=== PATIENT | female | born 2000 | race Caucasian/White ===

== ENCOUNTER 2020-02-11 10:28 | Outpatient (CLI) | payer OTHER ==
--- NOTE | 2020-02-11 11:01 | Non Stress Test Report ---
Non Stress Test Datetime Report Generated by CPN: 02/11/2020 11:01 DEMOGRAPHIC EGA NST: 40.1 VITAL SIGNS Temperature - NST: 98.5 Pulse - NST: 93 RESP - NST: 18 NBPSYS NST: 130 NBPDIA NST: 77 MONITORING Monitor Explained: Monitor Explained; Test Explained; Patient Verbalized Understanding Time on Monitor: 02/11/2020 10:40 Time off Monitor: 02/11/2020 11:00 NST Duration: 20 NST INTERVENTIONS NST Interventions: PO Hydration Physician Notified NST: P Boudreaux CNM BABY A: [id number] BABY A Movement : Present Contraction Frequency : 0 FHR Baseline : 140 Accelerations : 15X15 Decelerations : None Variability : Moderate 6-25bpm NST Review: Meets Criteria for Reactive NST NST Review and Verified By : Ramya Camp RNC NST Results: Reactive NST REPORT Report Trigger: Send Report
== END 2020-02-11 11:06 | disposition home or self-care (01) ==
LOC: LC 10:28
PROVIDERS: ATTEND Obstetrics & Gynecology Gynecology
DX: O48.0 Post-term pregnancy (principal); Z3A.40 40 weeks gestation of pregnancy
CPT/HCPCS: 59025

== ENCOUNTER 2020-02-13 15:55 | Inpatient (IN) | payer OTHER ==
[2020-02-13 17:23] LABS: APPEARANCE,URINE SLIGHTLY-CLOUDY; BILIRUBIN,URINE NEGATIVE (NEGATIVE); COLOR,URINE YELLOW; GLUCOSE, URINE NEGATIVE (NEGATIVE); KETONES,URINE NEGATIVE (NEGATIVE); LEUKOCYTE ESTERASE,URINE NEGATIVE (NEGATIVE); NITRITE,URINE NEGATIVE (NEGATIVE); PROTEIN,URINE 100 mg/dL (NEGATIVE); UROBILINOGEN,URINE NEGATIVE mg/dL (<2.0)
[2020-02-13 17:38] LABS: URINE AMPHETAMINES SCREEN NEGATIVE; URINE BARBITURATES SCREEN NEGATIVE; URINE BENZODIAZEPINES SCREEN NEGATIVE; URINE COCAINE SCREEN NEGATIVE; URINE MARIJUANA (THC) SCREEN NEGATIVE; URINE METHADONE SCREEN NEGATIVE; URINE PHENCYCLIDINE SCREEN NEGATIVE
[2020-02-13] MEDS ORDERED: RINGERS SOLUTION,LACTATED 1,000 ML IV PRN (18:04)
[2020-02-13] MEDS ORDERED: OXYTOCIN/0.9 % SODIUM CHLORIDE 30 UNIT/500 ML RTUINJ IV PRN ×2 (18:04→22:52)
[2020-02-13] MEDS ORDERED: LIDOCAINE 1% INJ-PF (10 MG/ML) 30 ML SDV ONE (18:10)
[2020-02-13] MEDS ORDERED: OXYTOCIN 10 UNIT/ML VIAL ONE (18:10)
[2020-02-13] MEDS ORDERED: MISOPROSTOL 0.2 MG TABLET ONE (18:10)
[2020-02-13] MEDS ORDERED: OXYTOCIN/0.9 % SODIUM CHLORIDE 30 UNIT/500 ML RTUINJ ONE (18:10)
--- NOTE | 2020-02-13 18:36 | Admission Physical ---
Datetime Report Generated by CPN: 02/13/2020 18:35 CURRENT ADMISSION Chief Complaint: Uterine Contractions Indication for Induction: Post Dates Admit Impression : Term, Intrauterine Admit Impression- Other: eaerly labor making some cervical change. opting for labor augmentation Admit Plan: Initiate Labor Augmentation Protocol ALLERGIES Medication Allergies: Yes Medication Allergies: Penicillins (02/11/2020) Latex: No Latex Allergies OBSTETRICAL HISTORY EDC: 02/10/2020 00:00 : 1 Para: 0 Term: 0 : 0 SAB: 0 IAB: 0 Ectopic: 0 Livin Cesareans: 0 VBACs: 0 Multiple Births: 0 Current Procedures: Ultrasound; NST Obstetrical History Comments: G1-Current SEE RECORDS Alcohol: No Marijuana : No Cocaine: No Other Illicit Drugs: No Cigarettes: Smoker, Current Status Unknown. [id number] MEDICAL HISTORY Hosp/Surgery: Yes Medical History Comments: [place] teeth PHYSICAL EXAM General: Normal HEENT: Normal Neurologic: Normal Thyroid: Normal Heart: Normal Lungs: Normal Breast: Normal Back: Normal Abdomen: Normal Genitourinary Exam: Normal Extremities: Normal DTRs: Normal Pelvic Type: Adequate Vital Signs: Reviewed; Within Normal Limits VAGINAL EXAM Dilatation: 4 Effacement: 80 Station: -1 MEMBRANES Pooling: Negative Membranes: Intact FETUS A EGA: 40.3 Monitoring: External US FHR- Baseline: 150 Variability: Moderate 6-25bpm Accelerations: 15X15 Decelerations: None FHR Category: Category I Estimated Weight (gm): 3700 Presentation: Vertex PLANS FOR LABOR AND DELIVERY Labor and Delivery: None Pain Management: Epidural Feeding Preference: Breast Benefit of Breast Feed Discussed: Yes Circumcision: N/A INFORMED CONSENT Signature: with User ID: [email or web address]
[2020-02-13 18:44] LABS: ABSOLUTE LYMPHOCYTES (AUTO) 1.7 10^3/uL (0.5-4.7); ABSOLUTE MONOCYTES (AUTO) 0.8 10^3/uL (0.1-1.4); BASOPHILS % (AUTO) 0.4 % (0-2); EOSINOPHILS % (AUTO) 0.3 % (0-6); HEMATOCRIT 39.4 % (36.0-47.0); HEMOGLOBIN 13.8 g/dL (12.0-15.5); LYMPHOCYTES % (AUTO) 14.7 % (13-45); MEAN CORPUSCULAR HEMOGLOBIN 31.5 pg (27.0-33.4); MEAN CORPUSCULAR VOLUME 90 fl (80-97); MONOCYTES % (AUTO) 7.1 % (3-13); PLATELET COUNT 191 10^3/uL (150-450); RED BLOOD COUNT 4.38 10^6/uL (3.72-5.28); RED CELL DISTRIBUTION WIDTH 14.3 % (11.5-14.0); SEGMENTED NEUTROPHILS % (AUTO) 77.5 % (42-78); TOTAL CELLS COUNTED % (AUTO) 100 %; WHITE BLOOD COUNT 11.5 10^3/uL (4.0-10.5)
[2020-02-13] MEDS ORDERED: EPHEDRINE SULFATE INJ 50 MG/1 ML AMPULE ONE (18:54)
[2020-02-13] MEDS ORDERED: ROPIVACAINE HCL 0.2% INJ/PF (2 MG/ML) 20 ML SDV ONE (18:55)
[2020-02-13] MEDS ORDERED: FENTANYL/BUPIVACAINE/NS/PF 300 MCG/150 ML RTUINJ EPI ONE (18:55)
[2020-02-13] MEDS ORDERED: RINGERS SOLUTION,LACTATED 1,000 ML IV ONE (19:00)
[2020-02-13] MEDS ORDERED: PROMETHAZINE HCL 25 MG SUPP.RECT PR PRN (22:52)
[2020-02-13] MEDS ORDERED: GLYCERIN/WITCH HAZEL LEAF 1 EACH MED..WIPE TP PRN (22:52)
[2020-02-13] MEDS ORDERED: DIPHENHYDRAMINE HCL 25 MG CAPSULE PO PRN (22:52)
[2020-02-13] MEDS ORDERED: PROMETHAZINE HCL INJ 25 MG/1 ML VIAL IV PRN (22:52)
[2020-02-13] MEDS ORDERED: PROMETHAZINE HCL 25 MG TABLET PO PRN (22:52)
[2020-02-13] MEDS ORDERED: BENZOCAINE/MENTHOL AEROSOL SPRAY 56 ML TOP PRN (22:52)
[2020-02-13] MEDS ORDERED: ACETAMINOPHEN WITH CODEINE #3 TABLET PO PRN ×2 (22:52)
[2020-02-13] MEDS ORDERED: PSEUDOEPHEDRINE HCL 30 MG TABLET PO PRN (22:52)
[2020-02-13] MEDS ORDERED: MEASLES,MUMPS&RUBELLA VACC/PF 0.5 ML VIAL SUBCUT PRN (22:52)
[2020-02-13] MEDS ORDERED: ZOLPIDEM TARTRATE 5 MG TABLET PO PRN (22:52)
[2020-02-13] MEDS ORDERED: MAGNESIUM HYDROXIDE SUSP 30 ML UDCUP PO PRN (22:52)
[2020-02-13] MEDS ORDERED: DIPH/PERTUSS(ACELL)/TETANUS VAC/PF 0.5 ML SYR (>=10YO) IM PRN (22:52)
[2020-02-13] MEDS ORDERED: NA PHOS,M-B/NA PHOS,DI-BA (ADULT) 133 ML ENEMA PR PRN (22:52)
[2020-02-13] MEDS ORDERED: DIBUCAINE 1% OINTMENT 28 GM TP PRN (22:52)
[2020-02-13] MEDS ORDERED: ACETAMINOPHEN 650 MG SUPP.RECT PR PRN (22:52)
[2020-02-13] MEDS ORDERED: FAMOTIDINE 20 MG TABLET ONE (23:32)
[2020-02-13] MEDS ORDERED: IBUPROFEN 800 MG TABLET ONE (23:32)
[2020-02-13] MEDS: FAMOTIDINE 20 MG TABLET PO SCH (23:34)
--- NOTE | 2020-02-14 | Birth Certificate Data ---
Cert Data Datetime Report Generated by CPN: 02/13/2020 23:59 CERTIFICATE DATA 47a. Care: Yes (02/11/2020 10:33:Cynthia Romero RN) 48a. Number of Prev Live Births: 0 (02/11/2020 10:33:Cynthia Romero RN) 48b. Now Livin (02/11/2020 10:33:Cynthia Romero RN) 48c. Live Births Now : 0 (02/11/2020 10:33: system process) 48e. Losses: 0 (02/11/2020 10:33:Cynthia Romero RN) RISK FACTORS IN THIS 49a. Diabetes: No (02/11/2020 10:33:Linda Hinkle RN) 49b. Hypertension: No (02/11/2020 10:33:Linda Hinkle RN) 49c. Previous Births: 0 (02/11/2020 10:33:Cynthia Romero RN) 49d. Stillborns: No (02/11/2020 10:33:Linda Hinkle RN) 49d. IUGR: No (02/11/2020 10:33:Linda Hinkle RN) 49e. Infertility Treatment: No (02/11/2020 10:33:Linda Hinkle RN) 49f. Previous Cesareans: 0 (02/11/2020 10:33:Cynthia Romero RN) Mother's Height 50b. Height Inches: 65 (02/11/2020 10:39:QS system process) Mother's Weight 51b. Weight at Delivery (lbs): 194 (02/13/2020 16:15:QS system process) Infections Present/Treated 53a. Gonorrhea: No (02/11/2020 10:33:Linda Hinkle RN) Results this Hospital Visit : Negative (02/11/2020 10:33:Cynthia Romero RN) 53b. Syphilis: No (02/11/2020 10:33:Linda Hinkle RN) 53c. Chlamydia: No (02/11/2020 10:33:Linda Hinkle RN) Results this Hospital Visit: Negative (02/11/2020 10:33:Cynthia Romero RN) 53d. Hepatitis B: No (02/11/2020 10:33:Linda Hinkle RN) Results this Hospital Visit: Negative (02/11/2020 10:33:Cynthia Romero RN) 53e. Hepatitis C: Negative (02/11/2020 10:33:Linda Hinkle RN) 53h. Mother Tested for HBsAG: Yes (02/11/2020 10:33:Cynthia Romero RN) 53i. Date Tested: 08/07/2019 00:00 (02/11/2020 10:33:Linda Hinkle RN) 53j. Test Result: Negative (02/11/2020 10:33:Cynthia Romero RN) Obstetric Procedures 54a, b, c. Obstetric Procedures: Ultrasound; NST (02/11/2020 10:33:Cynthia Feuston, RN) Cigarette Smoking 55a. 3 Months Before Preg - Ci (02/11/2020 10:33:Cynthia Spearsustarmando, RN) 55b. 1st Trimester of Preg- Ci (02/11/2020 10:33:Cynthia Feuston, RN) 55b. Packs: 0 (02/11/2020 10:33:Cynthia Feuston, RN) 55c. 2nd Trimester of Preg- Ci (02/11/2020 10:33:Cynthia Spearsustarmando, RN) 55c. Packs: 0 (02/11/2020 10:33:Cynthia Feuston, RN) 55d. 3rd Trimester of Preg- Ci (02/11/2020 10:33:Cynthia Feuston, RN) 55d. Packs: 0 (02/11/2020 10:33:Cynthia Feuston, RN) Onset of Labor 56a. PROM >12 Hrs: 0.55 (02/13/2020 22:10:QS system process) 56b. Precipitous Labor <3 Hrs: 12 (02/11/2020 10:33:QS system process) 56c. Prolonged Labor > 20 Hrs: 12 (02/11/2020 10:33:QS system process) 57a. Induction of Labor: Augmentation (02/11/2020 10:33:Linda Hinkle RN) 57c. Non-Vertex Presentation A: Vertex (02/11/2020 10:33:Linda Hinkle RN) 57d. Steroids - Lung Mat: None (02/11/2020 10:33:Linda Hinkle RN) 57d. Steroids - Lung Mat: Not Applicable (02/11/2020 10:33:Linda Hinkle RN) 57g. Moderate/Heavy Meconium: Clear (02/13/2020 22:10:Linda Hinkle RN) 57h. Intolerance of Labor: N/A (02/11/2020 10:33:Linda Hinkle RN) : N/A (02/11/2020 10:33:Linda Hinkle RN) 57i. Epidural/Spinal Anesthesia: Epidural (02/11/2020 10:33:Mora Thorne RN) Method of Delivery 58a. Forceps - Unsuccessful A: N/A (02/11/2020 10:33:Mora Ring, RN) 58b. Vacuum - Unsuccessful A: N/A (02/11/2020 10:33:Mora Ring, RN) 58c. Presentation at 58c. Presentation at - A : Vertex (02/11/2020 10:33:Linda Manan ) 58c. Presentation at - A : N/A (02/11/2020 10:33:Mora Ring, RN) 58c. Presentation at - A : Cephalic (02/11/2020 10:33:Linda Shareenick, RN) Final Route and Method of Del 58d. Baby A Route/Delivery: Vaginal (02/13/2020 22:43:Linda Hinkle RN) 58e. Trial of Labor Attempted: No (02/11/2020 10:33:Mora Thorne RN) 58e. Trial of Labor Attempted A: N/A (02/11/2020 10:33:Mora Thorne RN) 58e. Trial of Labor Attempted B: N/A (02/11/2020 10:33:Mora Thorne RN) Maternal Morbidity 59b. 3rd or 4th Degree Lacs: None (02/11/2020 10:33:Kate Jarquin MD ([facility])) 59b. 3rd or 4th Degree Lacs: N/A (02/11/2020 10:33:Linda Hinkle RN) Birthweight Baby A: 3310 (02/11/2020 10:33:Linda Hinkle RN) 60a. Pounds : 7 (02/11/2020 10:33:QS system process) 60b. Ounces: 5 (02/11/2020 10:33:QS system process) 61. GA at Delivery Baby A: 40.3 (02/11/2020 10:33:Linda Hinkle RN) : Full Term- 39- 40.6 Weeks (02/11/2020 10:33:QS system process) 62a. 5 Minute Baby A: 9 (02/11/2020 10:33:QS system process)
--- NOTE | 2020-02-14 | Delivery Summary ---
Del Sum A-C Datetime Report Generated by CPN: 02/13/2020 23:59 DELIVERY PERSONNEL DELIVERY PERSONNEL: [id number] Delivery Doctor:: Kate Jarquin MD Labor and Delivery Nurse:: Linda Hinkle RN Nursery Nurse:: Sophie Ramirez RN [employer]/SPECTROGRAPHIC ANALYST: Arianna Ross, ST MATERNAL INFORMATION Delivery Anesthesia: Epidural Medications After Delivery: Pitocin 30 Units in 500ml NS/D5W Estimated Blood Loss (ml): 200 Delivery QBL: 150 Maternal Complications: None LABOR SUMMARY EDC: 02/10/2020 00:00 No. Babies in Womb: 0 Attempted: No Labor Anesthesia: Epidural LABOR INFORMATION Reason for Induction: Not Applicable Onset of Labor: 02/13/2020 10:00 Complete Dilatation: 02/13/2020 22:29 Oxytocin: Augmentation Group B Beta Strep: Negative Antibiotics # of Doses: 0 Name of Antibiotic Given: N/A Steroids Given: None Reason Steroids Not Administered: Not Applicable MEMBRANES Membranes Rupture Method: Spontaneous Rupture of Membranes: 02/13/2020 22:10 Length of Rupture (hr): 0.55 Amniotic Fluid Color: Clear Amniotic Fluid Amount: Large STAGES OF LABOR Stage 1 hr: 12 Stage 1 min: 29 Stage 2 hr: 0 Stage 2 min: 14 Stage 3 hr: 0 Stage 3 min: 3 Total Time in Labor hr: 12 Total Time in Labor min: 46 VAGINAL DELIVERY Episiotomy: None Laceration #1: None Laceration Extension #1: N/A Laceration Repair: Not Applicable Sponge Count Correct: N/A Sharps Count Correct: N/A CSECTION DELIVERY Primary Indication: N/A Secondary Indication: N/A CSection Incidence: N/A Labor: N/A Elective: N/A CSection Incision: N/A BABY A INFORMATION Delivery Date/Time: 02/13/2020 22:43 Method of Delivery: Vaginal Nurse Controlled Delivery: No Born in Route : No : N/A Forceps: N/A Vacuum Extraction: N/A Shoulder Dystocia : No PRESENTATION/POSITION BABY A Presentation: Cephalic Cephalic Presentation: Vertex Vertex Position: OA Breech Presentation: N/A PLACENTA INFORMATION BABY A Placenta Delivery Time : 02/13/2020 22:46 Placenta Method of Delivery: Spontaneous Placenta Status: Delivered SCORES BABY A Heart Rate 1 min: >100 bpm Resp Effort 1 min: Good Cry Reflex Irritability 1 min: Cough or Sneeze or Pulls Away Muscle Tone 1 min: Active Motion Color 1 min: Body [place], Extremities Blue Resuscitation Effort 1 min: Tactile Stimulation SCORE 1 MIN: 9 Heart Rate 5 min: >100 bpm Resp Effort 5 min: Good Cry Reflex Irritability 5 min: Cough or Sneeze or Pulls Away Muscle Tone 5 min: Active Motion Color 5 min: Body [place], Extremities Blue Resuscitation Effort 5 min: Tactile Stimulation SCORE 5 MIN: 9 INFANT INFORMATION BABY A Gestational Age at Delivery: 40.3 Gestational Status: Full Term- 39- 40.6 Weeks Infant Outcome : Liveborn Condition : Stable Infant Sex: Female IDENTIFICATION BABY A Infant Verification Date/Time: 02/13/2020 22:49 ID Band Number: [id number] Mother's Name Verified: Yes Infant RN Verifying : B. Ring and A. Chalman WEIGHT/LENGTH BABY A Birthweight (gm): 3310 Weight (lb): 7 Infant Weight (oz): 5 Infant Length (in): 19.00 Length (cm): 48.26 CORD INFORMATION BABY A No. Cord Vessels: 3 Nuchal Cord : N/A Cord Blood Taken: Yes-For Eval (Mom's Blood Type - or O+) Suction: None ASSESSMENT BABY A Complications: None Physical Findings at Delivery: Within Normal Limits Physical Findings- Other: See full nursery life agent Respirations: Appears Normal Skin to Skin: Yes Skin to Skin Time (min): 60 Infant Care By: Estefany Ramirez RN Transferred To: Remains with Mother BABY B INFORMATION : N/A SIGNATURES Signature: with User ID: [email or web address]
[2020-02-14] MEDS: IBUPROFEN 800 MG TABLET PO SCH ×3 (05:52→21:52)
[2020-02-14 06:54] LABS: HEMATOCRIT 37.1 % (36.0-47.0); HEMOGLOBIN 12.9 g/dL (12.0-15.5); MEAN CORPUSCULAR HEMOGLOBIN 31.7 pg (27.0-33.4); MEAN CORPUSCULAR HGB CONC 34.7 g/dL (32.0-36.0); MEAN CORPUSCULAR VOLUME 92 fl (80-97); PLATELET COUNT 168 10^3/uL (150-450); RED BLOOD COUNT 4.05 10^6/uL (3.72-5.28); RED CELL DISTRIBUTION WIDTH 14.8 % (11.5-14.0); WHITE BLOOD COUNT 15.1 10^3/uL (4.0-10.5)
--- NOTE | 2020-02-14 09:42 | PDOC PROGRESS REPORT ---
Subjective-OB Progress Note for:: 02/14/20 Subjective: OOB in room getting dressed, hsb at BS, no c/o, feels good, Physical Exam (OB) Vital Signs: Temp Pulse Resp BP Pulse Ox 97.7 F 110 H 18 137/80 H 98 02/14/20 01:01 02/14/20 01:01 02/14/20 01:01 02/14/20 01:01 02/14/20 01:01 Intake & Output 02/13/20 02/14/20 02/15/20 06:59 06:59 06:59 Output Total 500 Balance -500 Weight 88 kg - PIH/Pre-Eclampsia DTR's: 2 + Clonus: Negative Headache: Absent Epigastric Pain: No Visual Changes: No - Maternal Morbidity 59. Maternal Morbidity (serious complications experinced by the mother associated with labor and delivery: None of the above - Lochia Lochia Amount: Scant < 10 ml Lochia Color: Rubra/Red - Abdomen Description: Soft Hernia Present: No Fundal Description: Firm, Midline Fundal Height: u/u - u/2 Objective-Diagnostic Laboratory: 02/14/20 06:40 02/13/20 02/13/20 02/13/20 16:02 18:27 18:27 WBC 11.5 H RBC 4.38 Hgb 13.8 Hct 39.4 MCV 90 MCH 31.5 MCHC 35.0 RDW 14.3 H Plt Count 191 Seg Neutrophils % 77.5 Urine Color YELLOW Urine Appearance SLIGHTLY-CLOUDY Urine pH 6.0 Ur Specific [place] 1.010 Urine Protein 100 H Urine Glucose (UA) NEGATIVE Urine Ketones NEGATIVE Urine Blood MODERATE H Urine Nitrite NEGATIVE Ur Leukocyte Esterase NEGATIVE Blood Type O POSITIVE Antibody Screen NEGATIVE 02/14/20 06:40 WBC 15.1 H RBC 4.05 Hgb 12.9 Hct 37.1 MCV 92 MCH 31.7 MCHC 34.7 RDW 14.8 H Plt Count 168 Seg Neutrophils % Urine Color Urine Appearance Urine pH Ur Specific [place] Urine Protein Urine Glucose (UA) Urine Ketones Urine Blood Urine Nitrite Ur Leukocyte Esterase Blood Type Antibody Screen Assessment and Plan(PN) - Assessment and Plan (1) Grand multiparity in labor and delivery, delivered Is this a current diagnosis for this admission?: Yes (2) Vaginal delivery Is this a current diagnosis for this admission?: Yes - Time Spent with Patient Time with patient: Less than 15 minutes Medications reviewed and adjusted accordingly: Yes - Disposition Anticipated Discharge Disposition: Home, Self Care Anticipated Discharge Timeframe: within 48 hours
[2020-02-14] MEDS: SENNOSIDES/DOCUSATE 8.6-50 MG 1 EACH TABLET PO SCH (09:53)
[2020-02-14] MEDS: PRENATAL VITAMIN W DHA CAPSULE PO SCH (09:53)
[2020-02-14] MEDS: FAMOTIDINE 20 MG TABLET PO SCH ×2 (09:53→21:52)
[2020-02-14] MEDS: FERROUS SULFATE 325 MG TABLET PO SCH ×2 (09:53→17:46)
[2020-02-14] MEDS: DOCUSATE SODIUM 100 MG CAPSULE PO SCH ×2 (09:53→17:46)
[2020-02-15] MEDS: IBUPROFEN 800 MG TABLET PO SCH ×2 (06:21→14:12)
[2020-02-15 07:56] VITALS: BP 111/63
[2020-02-15] MEDS: DOCUSATE SODIUM 100 MG CAPSULE PO SCH (10:08)
[2020-02-15] MEDS: FAMOTIDINE 20 MG TABLET PO SCH (10:08)
[2020-02-15] MEDS: PRENATAL VITAMIN W DHA CAPSULE PO SCH (10:08)
[2020-02-15] MEDS: FERROUS SULFATE 325 MG TABLET PO SCH (10:08)
[2020-02-15] MEDS: SENNOSIDES/DOCUSATE 8.6-50 MG 1 EACH TABLET PO SCH (10:10)
--- NOTE | 2020-02-15 11:16 | PDOC DISCHARGE SUMMARY ---
Impression - Admit/DC Date/PCP Admission Date/Primary Care Provider: 02/13/20 18:14 JAMILAH BEAUCHAMP MD Discharge Date: 02/15/20 - PP Day #2, doing well, O+, Rubella immune, - Additional Information Resuscitation Status: Full Code Discharge Diet: As Tolerated, Regular Discharge Activity: Activity As Tolerated, No Lifting Over 10 Pounds, Pelvic Rest Referrals: JAMILAH BEAUCHAMP MD [Primary Care Provider] - Prescriptions: Ibuprofen [Motrin 800 mg Tablet] 800 mg PO Q8 #60 tablet Home Medications: Pnv No.95/Ferrous Fum/Folic AC [ Caplet] 1 each PO DAILY 02/11/20 Ibuprofen [Motrin 800 mg Tablet] 800 mg PO Q8 #60 tablet 02/15/20 HPI Reason(s) for Admission: Onset of Labor Procedures: Ultrasound Intrapartum Procedure(s): Spontaneous Vaginal Delivery Hospital Course Hospital Course: routine 59. Maternal Morbidity (serious complications experinced by the mother associated with labor and delivery: None of the above Results Laboratory Results: WBC 15.1 10^3/uL (4.0-10.5) H 02/14/20 06:40 RBC 4.05 10^6/uL (3.72-5.28) 02/14/20 06:40 Hgb 12.9 g/dL (12.0-15.5) 02/14/20 06:40 Hct 37.1 % (36.0-47.0) 02/14/20 06:40 MCV 92 fl (80-97) 02/14/20 06:40 MCH 31.7 pg (27.0-33.4) 02/14/20 06:40 MCHC 34.7 g/dL (32.0-36.0) 02/14/20 06:40 RDW 14.8 % (11.5-14.0) H 02/14/20 06:40 Plt Count 168 10^3/uL (150-450) 02/14/20 06:40 Lymph % (Auto) 14.7 % (13-45) 02/13/20 18:27 [place] % (Auto) 7.1 % (3-13) 02/13/20 18:27 Eos % (Auto) 0.3 % (0-6) 02/13/20 18:27 Baso % (Auto) 0.4 % (0-2) 02/13/20 18:27 Absolute Neuts (auto) 9.0 10^3/uL (1.7-8.2) H 02/13/20 18:27 Absolute Lymphs (auto) 1.7 10^3/uL (0.5-4.7) 02/13/20 18:27 Absolute Monos (auto) 0.8 10^3/uL (0.1-1.4) 02/13/20 18: Absolute Eos (auto) 0.0 10^3/uL (0.0-0.6) 02/13/20 18: Absolute Basos (auto) 0.0 10^3/uL (0.0-0.2) 02/13/20 18: Seg Neutrophils % 77.5 % (42-78) 02/13/20 18:27 Urine Color YELLOW 02/13/20 16:02 Urine Appearance SLIGHTLY-CLOUDY 02/13/20 16:02 Urine pH 6.0 (5.0-9.0) 02/13/20 16:02 Ur Specific [place] 1.010 02/13/20 16:02 Urine Protein 100 mg/dL (NEGATIVE) H 02/13/20 16:02 Urine Glucose (UA) NEGATIVE mg/dL (NEGATIVE) 02/13/20 16:02 Urine Ketones NEGATIVE mg/dL (NEGATIVE) 02/13/20 16:02 Urine Blood MODERATE (NEGATIVE) H 02/13/20 16:02 Urine Nitrite NEGATIVE (NEGATIVE) 02/13/20 16:02 Urine Bilirubin NEGATIVE (NEGATIVE) 02/13/20 16:02 Urine Urobilinogen NEGATIVE mg/dL (<2.0) 02/13/20 16:02 Ur Leukocyte Esterase NEGATIVE (NEGATIVE) 02/13/20 16:02 Urine Ascorbic Acid NEGATIVE (NEGATIVE) 02/13/20 16:02 Urine Opiates Screen NEGATIVE 02/13/20 16:02 Urine Methadone Screen NEGATIVE 02/13/20 16:02 Ur Barbiturates Screen NEGATIVE 02/13/20 16:02 Ur Phencyclidine Scrn NEGATIVE 02/13/20 16:02 Ur Amphetamines Screen NEGATIVE 02/13/20 16:02 U Benzodiazepines Scrn NEGATIVE 02/13/20 16:02 Urine Cocaine Screen NEGATIVE 02/13/20 16:02 U Marijuana (THC) Screen NEGATIVE 02/13/20 16:02 RPR NONREACTIVE (NONREACTIVE) 02/13/20 18:27 Blood Type O POSITIVE 02/13/20 18:27 Antibody Screen NEGATIVE 02/13/20 18:27 Plan Plan of Treatment: d/c home, f/up with [facility] in 4 wks Time Spent: Less than 30 Minutes
== END 2020-02-15 16:10 | disposition home or self-care (01) | DRG 807 ==
LOC: LC 15:55 → LR 18:14 → 2S 02-14 00:49
PROVIDERS: ADMIT Obstetrics & Gynecology; ATTEND Obstetrics & Gynecology
PROC: 10E0XZZ Delivery of Products of Conception, External Approach (ICD-10-PCS; principal; 2020-02-13)
DX: O48.0 Post-term pregnancy (principal); Z37.0 Single live birth; O99.334 Smoking (tobacco) complicating childbirth; F17.200 Nicotine dependence, unspecified, uncomplicated; Z3A.40 40 weeks gestation of pregnancy; Z88.0 Allergy status to penicillin
CPT/HCPCS: 1967; 36415; 59025; 80307; 81005; 85025; 85027; 86592; 86850; 86900; 86901; 94760; C1758; J2590; J2795; J3010; J3490